=== PATIENT | male | born 1965 | race Caucasian/White ===

== ENCOUNTER 2023-04-09 08:15 | Day surgery (SDC) | payer MEDICAID ==
[~2023-04-09] VITALS: Ht 175.3 cm; Wt 86.2 kg
[~2023-04-09 08:15] MED LIST: SODIUM CHLORIDE 0.9% 1,000 ML ONE
[2023-04-09] MEDS ORDERED: TAMS-13 PO (08:35)
[2023-04-09] MEDS ORDERED: SODIUM CHLORIDE 0.9% 1,000 ML IV ONE (09:45)
[2023-04-09] MEDS ORDERED: PROPOFOL 1% 20 ML VIAL IVP ONE ×2 (12:00)
[2023-04-09] MEDS ORDERED: LIDOCAINE/PF 2% 5 ML SYRINGE IVP ONE ×2 (12:00)
== END 2023-04-09 12:35 | disposition home or self-care (01) ==
LOC: SURGERY 08:15
PROVIDERS: ATTEND Internal Medicine Gastroenterology
DX: Z12.11 Encounter for screening for malignant neoplasm of colon (principal); K63.5 Polyp of colon; K64.8 Other hemorrhoids; K44.9 Diaphragmatic hernia without obstruction or gangrene; K31.89 Other diseases of stomach and duodenum; Z79.899 Other long term (current) drug therapy; Z98.890 Other specified postprocedural states
CPT/HCPCS: 45385; 43239; C1769; J2704; J3490; J7030